=== PATIENT | male | born 1975 | race Caucasian/White ===

== ENCOUNTER 2018-08-30 17:14 | Emergency (ER) | payer OTHER ==
[~2018-08-30] VITALS: Ht 180.3 cm; Wt 85.4 kg
--- NOTE | 2018-08-30 18:07 | NUR ---
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 Patient states he was hypertensive prior to beginning the drill (140/90) but was much higher afterwards, closer to blood pressure taken upon arrival to ED. Patient laying in gurney in no acute distress reporting he has no symptoms at this time but states he is concerned with how high his blood pressure is. Plan of care discussed, continuous blood pressure, SPO2 and cardiac monitoring in place, call raymond within reach.
[2018-08-30 18:18] LABS: BASOPHILS # (AUTO) 0.01 x10^3/uL (0-0.1); BASOPHILS % (AUTO) 0 % (0-1); EOSINOPHILS # (AUTO) 0.23 x10^3/uL (0-0.4); EOSINOPHILS % (AUTO) 4 % (1-7); LYMPHOCYTES # (AUTO) 1.89 x10^3/uL (1-3.4); LYMPHOCYTES % (AUTO) 31 % (22-44); MD NO; MEAN CORPUSCULAR HEMOGLOBIN 29.9 pg (27.5-34.5); MEAN CORPUSCULAR HGB CONC 34.9 g/dL (33.2-36.2); MEAN CORPUSCULAR VOLUME 85.8 fL (81-97); MEAN PLATELET VOLUME 7.7 fL (7.4-10.4); MONOCYTES # (AUTO) 0.45 x10^3/uL (0.2-0.8); MONOCYTES % (AUTO) 7 % (2-9); NEUTROPHILS # (AUTO) 3.51 x10^3/uL (1.8-6.8); NEUTROPHILS % (AUTO) 58 % (42-75); PLATELET COUNT 191 x10^3/uL (130-400); RED BLOOD COUNT 4.77 x10^6/uL (4.38-5.82); RED CELL DISTRIBUTION WIDTH 13.2 % (9.4-14.8)
[2018-08-30 18:21] LABS: ALBUMIN 4.6 g/dL (3.4-5.0); ANION GAP 5 mmol/L (5-15); CALCIUM 9.5 mg/dL (8.5-10.1); CHLORIDE 108 mmol/L (98-107); CREATININE 1.13 mg/dL (0.7-1.3)
[2018-08-30 19:03] VITALS: BP 163/101
--- NOTE | 2018-08-30 19:33 | NUR ---
Discharge instructions discussed with patient including when to return to emergency department, patient verbalizes understanding. Patient ambulates with steady gait to discharge desk in no acute distress with friend.
== END 2018-08-30 19:35 | disposition home or self-care (01) ==
LOC: ED 19:29
DX: I10 Essential (primary) hypertension (principal); Z90.49 Acquired absence of other specified parts of digestive tract
CPT/HCPCS: 36415; 80048; 82040; 85025; 93005; 99284